=== PATIENT | male | born 1975 | race Caucasian/White ===

== ENCOUNTER 2017-05-19 10:47 | Emergency (ER) | payer OTHER ==
[~2017-05-19] VITALS: Ht 152.4 cm; Wt 68.0 kg
[2017-05-19 10:54] VITALS: Ht 152.4 cm; Wt 68.0 kg
[2017-05-19] MEDS ORDERED: CLON1TAB3 PO (11:35)
--- NOTE | 2017-05-19 11:50 | ERD ---
ER Documentation Chief Complaint Date/Time DATE: 05/19/17 TIME: 11:47 Chief Complaint Patient out of psych meds needs refill HPI Patient is a 41-year-old male with past medical history of anxiety who presents to the ED with a refill of his clonazepam. Patient states that he is unable to refill his medication the last couple of days and has not been unable to contact his doctor. He states that he usually gets refills by [facility]. Denies suicidal or homicidal ideations. Denies hallucinations. He has no other complaints today. ROS All systems reviewed and are negative except as per history of present illness. Medications Home Meds Active Scripts Clonazepam* (Clonazepam*) 1 Mg Tablet, 1 MG PO Q8H Y for ANXIETY, #6 TAB Prov:CARLOS GARNER PA-C 05/19/17 PMhx/Soc Medical and Surgical Hx: pt denies Medical Hx History of Surgery: Yes (spine sx 2011 s/p falling off building) Anesthesia Reaction: No Hx Neurological Disorder: No Hx Respiratory Disorders: No Hx Cardiac Disorders: No Hx Psychiatric Problems: Yes (Anxiety) Hx Miscellaneous Medical Probl: No Hx Alcohol Use: No Hx Substance Use: No Hx Tobacco Use: No Smoking Status: Never smoker FmHx Family History: No coronary disease, No diabetes, No other Physical Exam Vitals Vital Signs Date Time Temp Pulse Resp B/P Pulse Ox O2 Delivery O2 Flow Rate FiO2 05/19/17 10:54 98.6 82 20 117/72 95 Physical Exam GENERAL: Well-developed, well-nourished male. Appears in no acute distress. HEAD: Normocephalic, atraumatic. EYES: Pupils are equally reactive bilaterally. EOMs grossly intact. No conjunctival erythema. ENT: Moist mucous membranes. No uvula deviation. No kissing tonsils. No exudates. NECK: Supple. No lymphadenopathy or thyromegaly. No meningismus. negative kernig. negative brudinski. LUNG: Clear to auscultation bilaterally. No rhonchi, wheezing, rales or coarse breath sounds. HEART: Regular rate and rhythm. No murmurs, rubs or gallops. Extremities: Equal pulses bilaterally. No peripheral clubbing, cyanosis or edema. No unilateral leg swelling. NEUROLOGIC: Alert and oriented. Moving all four extremities. 5/5 strength in all extremities. Normal speech. Steady gait. SKIN: Normal color. Warm and dry. No rashes or lesions. Capillary refill < 2 seconds Procedures/MDM ER COURSE: I kept the patient and/or family informed of laboratory and diagnostic imaging results throughout the emergency room course. MEDICAL DECISION MAKING: This is a 41-year-old male with past medical history of anxiety who presents with refill of his medication. Vital signs were reviewed. Patient is afebrile. Patient is not hypoxic. Patient states that he currently takes 1 mg of clonazepam twice a day. Patient was looked up on the cures report and last refill was done on April 21 2017enough for a 30 day supply. She has not been here at [facility] presents for refills. I have low suspicion for abuse. I explained to the patient hospital protocol and that patient should follow-up with his doctor for future refills. I will be given the patient 6 clonazepam's for home. I have low suspicion for suicidal ideation or homicidal ideation or hallucinations. I have low suspicion for psychosis at this time. Low suspicion for sepsis. No other complaints. DISCHARGE: At this time, patient is stable for discharge and outpatient management with no new complaints during the ER course. Patient was sent home with 6 tablets of clonazepam. Patient will be discharged home with instructions to recheck for new or worsening symptoms such as fever, nausea, weakness, LOC and to follow up with primary care in the next 1-2 days. Patient was advised to return to the ER for any new or worsening symptoms. Plan was discussed and patient and/or family understands and agrees. Home instructions were given. Departure Diagnosis: Primary Impression: Encounter for medication refill Condition: Stable Patient Instructions: Taking Medicine Safely Additional Instructions: PLEASE FOLLOW UP WITH YOUR DOCTOR FOR FURTHER REFILLS Call your primary care doctor TOMORROW for an appointment during the next 1-2 days.See the doctor sooner or return here if your condition worsens before your appointment time. CARLOS GARNER PA-C May 19, 2017 11:50
== END 2017-05-19 11:57 | disposition home or self-care (01) ==
LOC: FTE 10:47
DX: Z76.0 Encounter for issue of repeat prescription (principal)
CPT/HCPCS: 99281

== ENCOUNTER 2018-02-17 10:19 | Emergency (ER) | END 2018-02-17 10:44 | disposition home or self-care (01) ==